=== PATIENT | male | born 1975 | race Two or more races ===

== ENCOUNTER 2024-06-24 04:37 | Emergency (ER) | payer MEDICAID, OTHER ==
[~2024-06-24] VITALS: Ht 175.3 cm; Wt 115.5 kg
[2024-06-24 04:48] VITALS: BP 161/107; PULSE 103; RESP 18; O2SAT 97
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
== END 2024-06-25 00:25 | disposition left against medical advice (07) ==
LOC: ER 04:37
DX: K29.70 Gastritis, unspecified, without bleeding (principal); E78.5 Hyperlipidemia, unspecified; I10 Essential (primary) hypertension; E66.9 Obesity, unspecified; Z88.1 Allergy status to other antibiotic agents; Z88.2 Allergy status to sulfonamides; Z98.84 Bariatric surgery status; V43.52XA Car driver injured in collision with other type car in traffic accident, initial encounter; Y93.89 Activity, other specified; Y92.89 Other specified places as the place of occurrence of the external cause; Y99.8 Other external cause status